=== PATIENT | female | born 1970 | race Caucasian/White ===

== ENCOUNTER 2023-02-03 22:49 | Emergency (ER) | payer OTHER ==
[~2023-02-03] VITALS: Ht 165.1 cm; Wt 77.1 kg
[2023-02-03] MEDS ORDERED: ALBUTEROL/IPRATROPIUM 3 ML NEB ONE (23:28)
[2023-02-03] MEDS ORDERED: ALBUTEROL/IPRATROPIUM 3 ML NEB NEB ONE (23:30)
[2023-02-03] MEDS ORDERED: IPRAT-ALBUT 0.5-3 ML NEB (23:38)
[2023-02-03] MEDS ORDERED: PROVENTIL HFA6.7 GM INH (23:38)
[2023-02-03] MEDS ORDERED: AZITHROMYCIN250 MG PO (23:38)
[2023-02-03] MEDS ORDERED: EASY NEB COMPR1 EACH (23:38)
[2023-02-03] MEDS ORDERED: PREDNISONE20 MG PO (23:38)
[2023-02-03 23:47] VITALS: PULSE 86; RESP 18; O2SAT 96
== END 2023-02-04 00:27 | disposition home or self-care (01) ==
LOC: FSED 22:55
DX: R06.02 Shortness of breath (principal); J44.9 Chronic obstructive pulmonary disease, unspecified; Z85.3 Personal history of malignant neoplasm of breast
CPT/HCPCS: 71046; 99283

== ENCOUNTER 2023-03-11 09:18 | Emergency (ER) | payer OTHER ==
[~2023-03-11] VITALS: Ht 157.5 cm; Wt 90.7 kg
[~2023-03-11 09:18] MED LIST: AZITHROMYCIN250 MG PO; EASY NEB COMPR1 EACH; IPRAT-ALBUT 0.5-3 ML NEB; PREDNISONE20 MG PO; PROVENTIL HFA6.7 GM INH
[2023-03-11 12:02] VITALS: O2SAT 96
== END 2023-03-11 12:02 | disposition home or self-care (01) ==
LOC: FSED 09:23
DX: S40.012A Contusion of left shoulder, initial encounter (principal); W10.8XXA Fall (on) (from) other stairs and steps, initial encounter; Y93.01 Activity, walking, marching and hiking; Y92.89 Other specified places as the place of occurrence of the external cause; J44.9 Chronic obstructive pulmonary disease, unspecified; K21.9 Gastro-esophageal reflux disease without esophagitis; Z85.3 Personal history of malignant neoplasm of breast; Q85.00 Neurofibromatosis, unspecified
CPT/HCPCS: 99283

== ENCOUNTER 2023-10-28 19:04 | Emergency (ER) | payer BC, OTHER ==
[~2023-10-28] VITALS: Ht 157.5 cm; Wt 90.7 kg
[2023-10-28 19:18] VITALS: O2SAT 97
[2023-10-28] MEDS: PROMETHAZINE 25MG/ NS 50ML (IV) IV ONE (20:00)
[2023-10-28] MEDS ORDERED: PROMETHAZINE HCL (IM) 25 MG/ML VIAL IM ONE (20:04)
[2023-10-28] MEDS ORDERED: SODIUM CHLORIDE 0.9% 1000ML 1,000 ML ONE (20:04)
[2023-10-28] MEDS: SODIUM CHLORIDE 0.9% 1000ML 1,000 ML IV SCH (20:29)
[2023-10-28] MEDS: FAMOTIDINE 20 MG/2 ML VIAL IV STA (20:29)
[2023-10-28] MEDS ORDERED: IOPAMIDOL 370 MG/ML 100 ML INFUS..BTL INJ ONE (20:34)
[2023-10-28] MEDS ORDERED: ONDANSETRON HCL INJ 2MG/ML 2ML 2 MG/ML VIAL ONE (23:14)
[2023-10-28] MEDS ORDERED: SODIUM CHLORIDE 0.9% 500ML 500 ML ONE (23:15)
[2023-10-29] MEDS: ONDANSETRON HCL INJ 2MG/ML 2ML 2 MG/ML VIAL IV STA (00:13)
[2023-10-29] MEDS: SODIUM CHLORIDE 0.9% 500ML 500 ML IV ONE (00:15)
[2023-10-29] MEDS ORDERED: PROMETHAZINE HC25 M1 PO (00:59)
== END 2023-10-29 01:00 | disposition home or self-care (01) ==
LOC: FSED 19:14
DX: R11.2 Nausea with vomiting, unspecified (principal); A08.4 Viral intestinal infection, unspecified; C50.919 Malignant neoplasm of unspecified site of unspecified female breast; Q85.00 Neurofibromatosis, unspecified; J44.9 Chronic obstructive pulmonary disease, unspecified; K65.4 Sclerosing mesenteritis; K76.0 Fatty (change of) liver, not elsewhere classified; K21.9 Gastro-esophageal reflux disease without esophagitis; F17.210 Nicotine dependence, cigarettes, uncomplicated
CPT/HCPCS: 74177; 87086; 99284; J2405; J2550; J7030; J7040; Q9967; 87186

== ENCOUNTER 2024-02-05 17:08 | Emergency (ER) | payer BC, OTHER ==
[~2024-02-05] VITALS: Ht 157.5 cm; Wt 80.8 kg
[~2024-02-05 17:08] MED LIST changes: +PROMETHAZINE HC25 M1 PO
[2024-02-05 17:15] VITALS: O2SAT 96
== END 2024-02-05 18:05 | disposition home or self-care (01) ==
LOC: FSED 17:11
DX: R63.1 Polydipsia (principal); J39.2 Other diseases of pharynx; G47.30 Sleep apnea, unspecified; J44.9 Chronic obstructive pulmonary disease, unspecified; Q85.00 Neurofibromatosis, unspecified; K21.9 Gastro-esophageal reflux disease without esophagitis; Z11.52 Encounter for screening for COVID-19; Z85.3 Personal history of malignant neoplasm of breast
CPT/HCPCS: 0223U; 36415; 81003; 82948; 83518; 87400; 99283

== ENCOUNTER 2024-03-31 18:11 | Emergency (ER) | payer BC, OTHER ==
[~2024-03-31] VITALS: Ht 157.5 cm; Wt 80.0 kg
[2024-03-31 18:29] VITALS: PULSE 98; RESP 16; TEMP 97.2
[2024-03-31] MEDS ORDERED: MELOXICAM7.5 MG PO (20:29)
[2024-03-31 21:56] VITALS: BP 129/74; PULSE 71; RESP 16; TEMP 98.3; O2SAT 100
== END 2024-03-31 21:10 | disposition home or self-care (01) ==
LOC: FSED 18:16
DX: S92.321A Displaced fracture of second metatarsal bone, right foot, initial encounter for closed fracture (principal); Q85.00 Neurofibromatosis, unspecified; J44.9 Chronic obstructive pulmonary disease, unspecified; I10 Essential (primary) hypertension; X58.XXXA Exposure to other specified factors, initial encounter; Z88.6 Allergy status to analgesic agent; Z88.8 Allergy status to other drugs, medicaments and biological substances; Z79.1 Long term (current) use of non-steroidal anti-inflammatories (NSAID); Z79.899 Other long term (current) drug therapy
CPT/HCPCS: 99284

== ENCOUNTER 2024-06-19 12:52 | Emergency (ER) | payer OTHER, BC ==
[~2024-06-19] VITALS: Ht 157.5 cm; Wt 80.4 kg
[~2024-06-19 12:52] MED LIST changes: +MELOXICAM7.5 MG PO
[2024-06-19 13:16] VITALS: PULSE 96; RESP 18; TEMP 98.4; O2SAT 95
[2024-06-19] MEDS ORDERED: BENZONATATE100 MG PO (13:20)
== END 2024-06-19 13:30 | disposition home or self-care (01) ==
LOC: FSED 13:04
DX: R05.9 Cough, unspecified (principal); J06.9 Acute upper respiratory infection, unspecified; I10 Essential (primary) hypertension; J44.9 Chronic obstructive pulmonary disease, unspecified; J45.909 Unspecified asthma, uncomplicated; Q85.00 Neurofibromatosis, unspecified; K21.9 Gastro-esophageal reflux disease without esophagitis; Z85.3 Personal history of malignant neoplasm of breast
CPT/HCPCS: 99283